=== PATIENT | female | born 1980 | race Caucasian/White ===

== ENCOUNTER 2024-02-24 12:38 | Emergency (ER) | payer BC ==
[2024-02-24] MEDS ORDERED: NA CHLORIDE 0.9% 2,000 ML ONE (13:16)
[2024-02-24] MEDS ORDERED: FAMOTIDINE 20 MG/2 ML VIAL IV ONE (13:16)
[2024-02-24 13:45] LABS: Absolute Basophils 0.1 K/uL (0-0.5); Absolute Eosinophils 0.2 K/uL (0-0.5); Absolute Lymphocytes (CBC) 0.8 K/uL (0.7-4.9); Absolute Monocytes 0.5 K/uL (0.1-1.3); Absolute Neutrophil 8.1 K/uL (1.8-8.0); Basophils % 0.5 % (0-1.3); Hematocrit 26.7 % (36.0-45.0); Hemoglobin 9.1 g/dL (12.0-15.0); Lymphocytes % 8.4 % (15.3-44.8); MCH 26.5 pg (27.0-35.0); MCHC 34.2 g/dL (32.0-36.0); MCV 77.5 fL (80-100); MPV 7.4 fL (7.6-11.3); Monocytes % 5.1 % (3.3-12.3); Platelets 465 thou/uL (152-406); RBC Red Blood Cell Count 3.44 M/uL (3.86-4.86); Red Cell Distribution Width 17.6 % (12.1-15.2)
[2024-02-24 13:52] LABS: PT Prothrombin Time 13.4 SECONDS (9.4-12.5); Protime INR 1.28
[2024-02-24 14:13] LABS: ALT/SGPT 23 U/L (13-56); AST/SGOT 39 U/L (15-37); Albumin 1.5 g/dL (3.4-5.0); Albumin/Globulin Ratio 0.3 (1.1-1.8); Alkaline Phosphatase 76 U/L (45-117); Anion Gap 15.7 mEq/L (5.0-15.0); BUN Blood Urea Nitrogen 83 mg/dL (7-18); Bicarbonate 21 mEq/L (21-32); Bilirubin Total 0.3 mg/dL (0.2-1.0); Globulin 4.9 g/dL (2.3-3.5); Glomerular Filtration Rate 10 ml/min (=/>90); Glucose Level 141 mg/dL (74-106); Lipase 60 U/L (13-75); Magnesium 2.8 mg/dL (1.6-2.4); NT PRO-BNP 2382 pg/mL (<125); Potassium 2.7 mEq/L (3.5-5.1); Protein, Total 6.4 g/dL (6.4-8.2); Sodium Level 134 mEq/L (136-145)
[2024-02-24 14:14] LABS: Bilirubin Direct < 0.2 mg/dL (0-0.2); Bilirubin Indirect, Calculated 0.1 mg/dL (0.2-0.8)
--- NOTE | 2024-02-24 14:47 | RAD REPORT ---
EXAMINATION: ONE VIEW CHEST XR CLINICAL INDICATION: Female, 43 years old.,COUGH TECHNIQUE: Frontal chest projection is submitted. Examination is limited by patient positioning and t echnique. COMPARISON: No prior exam. FINDINGS: Central interstitial prominence and central patchy opacities. Right Port-A-Cath in place with cathete r tip at the level of the distal SVC. No pneumothorax or sizable effusion. The heart is normal in size. Mediastinal contours are unremarkable. IMPRESSION: Findings suggestive of pulmonary edema versus multifocal pneumonia.
--- NOTE | 2024-02-24 15:53 | EDPHYS ---
Physician Documentation [facility] Name: Lynsey Jose Age: 43 yrs Sex: Female : 1980 Arrival Date: 02/24/2024 Time: 12:38 Bed 16 Private MD: ED Physician Arash Adler HPI: 02/23 15:42 This 43 yrs old Female presents to ER via EMS with complaints of Altered constance Mental Status. Historical: - Allergies: 13:05 PENICILLINS; bp 13:05 Sulfa (Sulfonamide Antibiotics); bp - PMHx: 13:05 UTERINE CANCER; bp - PSHx: 13:05 Total abdominal hysterectomy; bp - Immunization history:: Adult Immunizations up to date. - Infectious Disease History:: Denies. - Social history:: Smoking status: Patient denies any tobacco usage or history of. ROS: 15:46 Constitutional: Negative for fever, chills, and weight loss, Eyes: Negative for injury, constance pain, redness, and discharge, ENT: Negative for injury, pain, and discharge, Neck: Negative for injury, pain, and swelling, Cardiovascular: Negative for chest pain, palpitations, and edema, Respiratory: Negative for shortness of breath, cough, wheezing, and pleuritic chest pain, Abdomen/GI: Negative for abdominal pain, nausea, vomiting, diarrhea, and constipation, Back: Negative for injury and pain, : Negative for injury, bleeding, discharge, and swelling, MS/Extremity: Negative for injury and deformity, Skin: Negative for injury, rash, and discoloration, Psych: Negative for depression, anxiety, suicide ideation, homicidal ideation, and hallucinations, Allergy/Immunology: Negative for hives, rash, and allergies, Endocrine: Negative for neck swelling, polydipsia, polyuria, polyphagia, and marked weight changes, Hematologic/Lymphatic: Negative for swollen nodes, abnormal bleeding, and unusual bruising, 15:46 Neuro: Positive for altered mental status, dizziness, near syncope, weakness, Exam: 15:46 Head/Face: Normocephalic, atraumatic. Eyes: Pupils equal round and reactive to light, constance extra-ocular motions intact. Lids and lashes normal. Conjunctiva and sclera are non-icteric and not injected. Cornea within normal limits. Periorbital areas with no swelling, redness, or edema. ENT: Nares patent. No nasal discharge, no septal abnormalities noted. Tympanic membranes are normal and external auditory canals are clear. Oropharynx with no redness, swelling, or masses, exudates, or evidence of obstruction, uvula midline. Mucous membranes moist. Neck: Trachea midline, no thyromegaly or masses palpated, and no cervical lymphadenopathy. Supple, full range of motion without nuchal rigidity, or vertebral point tenderness. No Meningismus. Chest/axilla: Normal chest wall appearance and motion. Nontender with no deformity. No lesions are appreciated. Abdomen/GI: Soft, non-tender, with normal bowel sounds. No distension or tympany. No guarding or rebound. No evidence of tenderness throughout. Skin: Warm, dry with normal turgor. Normal color with no rashes, no lesions, and no evidence of cellulitis. MS/ Extremity: Pulses equal, no cyanosis. Neurovascular intact. Full, normal range of motion., bilateral aka Neuro: Awake and alert, GCS 15, oriented to person, place, time, and situation. Cranial nerves II-XII grossly intact. Motor strength 5/5 in all extremities. Sensory grossly intact. Cerebellar exam normal. Normal gait. 15:46 Constitutional: The patient appears frail, obese, obviously ill, 15:46 ECG was reviewed by the Attending Physician. 15:46 Musculoskeletal/extremity: DVT Exam: No signs of deep vein thrombosis. no pain, no swelling, no tenderness, negative Homans' sign noted on exam, no appreciated bluish discoloration, no erythema, no increased warmth, 15:46 Neuro: Orientation: is normal, appropriate for stated age, no acute changes, Mentation: slow to respond, Cranial nerves: grossly normal, is grossly normal based on the patient's age, no acute changes, Cerebellar function: unable to test, Motor: moves all fours, Gait: not tested. seizure activity, is not displayed by the patient, Vital Signs: 13:04 BP 84 / 44; bp 13:05 BP 89 / 56; Pulse 96; Resp 15; Temp 97.5; Pulse Ox 97% ; Weight 112.04 kg; bp 13:56 BP 83 / 55; Pulse 92; Resp 16; Pulse Ox 97% ; bp 15:23 BP 83 / 42; Pulse 85; Resp 10; Pulse Ox 92% ; bp 16:00 BP 117 / 86; Pulse 89; Resp 12; Pulse Ox 96% on 2 lpm NC; bp 17:00 BP 123 / 67; Pulse 94; Resp 13; Pulse Ox 93% ; bp 18:00 BP 116 / 62; Pulse 96; Resp 12; Pulse Ox 95% ; bp NIH Stroke Scale Scores: 15:46 NIHSS Score: 0 constance Tucker Coma Score: 15:46 Eye Response: spontaneous(4). Motor Response: obeys commands(6). Verbal Response: constance oriented(5). Total: 15. MDM: 12:44 Medical Screening Exam initiated constance 15:49 Differential Diagnosis: CVA, electrolyte abnormality, hypoglycemia, intracranial bleed, constance meningitis, overdose, pneumonia, sepsis, TIA, UTI, volume depletion. Data reviewed: vital signs, nurses notes, EMS record, lab test result(s), EKG, radiologic studies, CT scan, plain films. Consideration of Admission/Observation Escalation of care including admission/observation considered. I considered the following discharge prescriptions or medication management in the emergency department Medications were administered in the Emergency Department. See MAR. Independent interpretation of the following test(s) in the Emergency Department EKG: See my EKG interpretation above. Test considered but Not performed: Ultrasound no abd usg. Historians other than the Patient: Spouse/Significant Other: well informed. Care significantly affected by the following chronic conditions: Cancer. Counseling: I had a detailed discussion with the patient and/or guardian regarding the historical points, exam findings, and any diagnostic results supporting the discharge/admit diagnosis, lab results, the need to transfer to another facility, for higher level of care, [facility] does not immediately have the required specialist. 02/23 12:45 Order name: Basic Metabolic Panel; Complete Time: 18:49 [facility] 02/23 12:45 Order name: CBC with Diff; Complete Time: 15:23 [facility] 02/23 12:45 Order name: LFT's; Complete Time: 18:49 [facility] 02/23 12:45 Order name: Magnesium; Complete Time: 18:49 [facility] 02/23 12:45 Order name: NT PRO-BNP; Complete Time: 18:49 [facility] 02/23 12:45 Order name: PT-INR; Complete Time: 15:23 [facility] 02/23 12:45 Order name: Troponin HS; Complete Time: 18:49 [facility] 02/23 12:45 Order name: Lipase; Complete Time: 18:49 [facility] 02/23 12:45 Order name: Urinalysis w/ reflexes; Complete Time: 18:49 [facility] 02/23 12:45 Order name: Type And Screen; Complete Time: 15:23 [facility] 02/23 15:25 Order name: Blood Culture Adult (2) [facility] 02/23 15:25 Order name: Lactate w/ 2H reflex if indic.; Complete Time: 16:34 [facility] 02/23 15:46 Order name: Flu; Complete Time: 18:49 [facility] 02/23 15:46 Order name: SARS RAPID; Complete Time: 18:49 [facility] 02/23 17:39 Order name: Urine Culture [facility] 02/23 18:13 Order name: Phosphorus; Complete Time: 18:49 [facility] 02/23 12:45 Order name: XRAY Chest (1 view); Complete Time: 15:23 [facility] 02/23 15:44 Order name: Chest Abd Pelvis Wo Con; Complete Time: 17:32 [facility] 02/23 15:45 Order name: Head C Spine Mpr Wo Con; Complete Time: 16:34 [facility] 02/23 12:45 Order name: Cardiac monitoring; Complete Time: 13:10 [facility] 02/23 12:45 Order name: EKG - Nurse/Tech; Complete Time: 14:16 [facility] 02/23 12:45 Order name: IV Saline Lock; Complete Time: 13:10 [facility] 02/23 12:45 Order name: Labs collected and sent; Complete Time: 13:31 [facility] 02/23 12:45 Order name: O2 Per Protocol; Complete Time: 13:10 [facility] 02/23 12:45 Order name: O2 Sat Monitoring; Complete Time: 13:10 [facility] 02/23 15:25 Order name: IV Saline Lock - Large Bore; Complete Time: 17:22 [facility] 02/23 15:42 Order name: Stern; Complete Time: 17:22 [facility] 02/23 15:46 Order name: Misc. Order: access port; Complete Time: 16:49 [facility] EC:46 Rate is 91 beats/min. Rhythm is regular. QRS Glendo is Normal. ME interval is normal. QRS constance interval is normal. QT interval is normal. No Q waves. T waves are Normal. No ST changes noted. Clinical impression: NSR w/ Non-specific ST/T Changes and No evidence of ischemia. Interpreted by me. Reviewed by me. Administered Medications: 13:30 Drug: NS 0.9% IV (30 ml/kg) 30 ml/kg IV at bolus once; Sepsis Protocol; to be given as bp a bolus over 90 minutes Route: IV; Rate: bolus; Site: right hand; 18:54 Follow up: IV Status: Completed infusion bp 13:30 Drug: Famotidine IVP 20 mg IVP once; dilute with 10 mL 0.9% NaCl; give over 2 minutes bp Route: IVP; Site: right hand; 18:54 Follow up: Response: No adverse reaction bp 16:00 Drug: Meropenem IV 1 grams IV at per protocol once; (mix in NS 100 mL) Route: IV; Rate: bp per protocol; Site: right hand; 18:54 Follow up: IV Status: Completed infusion bp 16:00 Drug: Albumin IVPB 25 grams 100 ml IVPB once; (Note: Albumin 25% concentration) Volume: bp 100 ml; Route: IVPB; Site: right hand; 18:54 Follow up: IV Status: Completed infusion bp 16:00 Drug: Solu-CORTEF IVP 100 mg IVP once Route: IVP; Site: right hand; bp 18:53 Follow up: Response: No adverse reaction bp 16:30 Drug: Norepinephrine IV 0.1 mcg/kg/min IV at calculated rate See Administration bp Instructions; (Standard concentration 4 mg / 250 mL D5W); Recommended max rate 3 mcg/kg/min; Titrate 0.05 mcg/kg/min as often as every 5 minutes to achieve goal (see titration policy); Goal parameter MAP greater than 65 mmHg. Route: IV; Rate: calculated rate; Site: Port-a-cath; 18:53 Follow up: IV Status: Infusion continued upon transfer bp 16:30 Drug: Potassium Chloride IV 20 mEq IV at per protocol once; administer over 1 hours bp Route: IV; Rate: per protocol; Site: Port-a-cath; 18:53 Follow up: IV Status: Completed infusion bp 16:30 Drug: Potassium Chloride IV 20 mEq IV at per protocol once; administer over 1 hours bp Route: IV; Rate: per protocol; Site: Port-a-cath; 18:53 Follow up: IV Status: Completed infusion bp 18:30 Drug: NS 0.9% with KCl IV 20 mEq/L 1000 ml IV at 125 ml/hr continuous Route: IV; Rate: bp 125 ml/hr; Site: Port-a-cath; 18:53 Follow up: IV Status: Infusion continued upon transfer bp 18:54 Not Given (UNAVAILABLEe): [id number] mg 100 ml IVPB once over 60 mins bp Disposition Summary: 02/24/24 15:52 Transfer Ordered Notes: Transfer Location: [facility] System constance Reason: Higher level of care constance Condition: Serious constance Problem: new constance Symptoms: have improved constance Accepting Physician: to JOSE F OCONNOR(02/24/24 18:56) bp Diagnosis - Severe sepsis with septic shock constance - Acute kidney failure, unspecified constance - Hypotension, unspecified constance - Hypokalemia constance - Anemia in other chronic diseases classified elsewhere constance - Anemia, unspecified constance - Altered mental status, unspecified constance - Encounter for screening for malignant neoplasm of other genitourinary organs constance Forms: - Medication Reconciliation Form constance - SBAR form constance NIH Stroke Scale - NIH Stroke Score Date: 02/24/2024 Time: 15:46 Total Score = 0 10. Dysarthria (speech clarity - read or repeat words) - 0(Normal) 11. Extinction and Inattention (visual/tactile/auditory/spatial/personal) - 0(No abnormality) 1a. Level of Consciousness (LOC) - 0(Alert) 1b. Level of Consciousness (LOC) (Month \T\ Age) - 0(Both) 1c. LOC Commands (Open \T\ Closes Eyes/Nursing Professor) - 0(Both) 2. Best Gaze (Lateral Gaze Paresis) - 0(Normal) 3. Visual Field Loss - 0(No visual loss) 4. Facial Palsy - 0(Normal) 5a. Left Arm: Motor (10-second hold) - 0(No drift) 5b. Right Arm: Motor (10-second hold) - 0(No drift) 6a. Left Leg: Motor (5-second hold - always test supine) - 0(No drift) 6b. Right Leg: Motor (5-second hold - always test supine) - 0(No drift) 7. Limb Ataxia (finger/nose \T\ heel/kaplan - test with eyes open) - 0(Absent) 8. Sensory Loss (pinprick arms/legs/face) - 0(Normal) 9. Best Language: Aphasia (description/naming/reading) - 0(No aphasia) Initials: constance Signatures: Dispatcher [employer] EDMS Arash Adler MD MD cha Peltier, Brian, RN RN bp Corrections: (The following items were deleted from the chart) 12:46 12:46 BASIC METABOLIC PANEL+C.LAB.BRZ ordered. EDMS EDMS 12:46 12:46 CBC+H.LAB.BRZ ordered. EDMS EDMS 12:46 12:46 HEPATIC FUNCTION+C.LAB.BRZ ordered. EDMS EDMS 12:46 12:46 MAGNESIUM+C.LAB.BRZ ordered. EDMS EDMS 12:46 12:46 PROBNP+C.LAB.BRZ ordered. EDMS EDMS 12:46 12:46 PROTIME (+INR)+COAG.LAB.BRZ ordered. EDMS EDMS 12:46 12:46 Troponin High Sensitivity+C.LAB.BRZ ordered. EDMS EDMS 12:46 12:46 LIPASE+C.LAB.BRZ ordered. EDMS EDMS 12:46 12:46 Urinalysis+U.LAB.BRZ ordered. EDMS EDMS 12:46 12:46 TYPE AND SCREEN+BB.LAB.BRZ ordered. EDMS EDMS 12:46 12:46 Chest Single View+RAD.RAD.BRZ ordered. EDMS EDMS 15:25 15:25 BLOOD CULTURE*+BA.LAB.BRZ ordered. EDMS EDMS 15:25 15:25 LACTATE+C.LAB.BRZ ordered. EDMS EDMS 15:44 15:29 Head C Spine Cap Wo Con+CT.RAD.BRZ ordered. EDMS EDMS 15:46 15:46 Influenza Screen (A \T\ B)+BA.LAB.BRZ ordered. EDMS EDMS 15:46 15:46 SARS-COV-2 Antigen Rapid+I.LAB.BRZ ordered. EDMS EDMS 17:33 15:52 to [facility] constance constance 18:13 15:45 PHOSPHORUS+C.LAB.BRZ ordered. EDMS EDMS 18:56 17:33 to [facility] constance bp
--- NOTE | 2024-02-24 15:53 | ER ---
Nurse's Notes [facility] Name: Lynsey Jose Age: 43 yrs Sex: Female : 1980 Arrival Date: 02/24/2024 Time: 12:38 Bed 16 Private MD: Diagnosis: Severe sepsis with septic shock;Acute kidney failure, unspecified;Hypotension, unspecified;Hypokalemia;Anemia in other chronic diseases classified elsewhere;Anemia, unspecified;Altered mental status, unspecified;Encounter for screening for malignant neoplasm of other genitourinary organs Presentation: 02/23 13:04 Chief complaint: EMS states: [facility]. Coronavirus screen: At this time, the bp client does not indicate any symptoms associated with coronavirus-19. Ebola Screen: No symptoms or risks identified at this time. Initial Sepsis Screen: Does the patient meet any 2 criteria? Systolic BP < 90 mmHg. Does the patient have a suspected source of infection? No. Patient's initial sepsis screen is negative. Risk Assessment: Do you want to hurt yourself or someone else? Patient reports no desire to harm self or others. Onset of symptoms is unknown. Care prior to arrival: Medication(s) given: Normal saline infusion, 1000 mL, IV initiated. 22 GA, in the right hand, Glucose check: 154. 13:04 Method Of Arrival: EMS bp 13:04 Acuity: OSEAS 3 bp Triage Assessment: 13:05 General: Appears in no apparent distress. obese, Behavior is cooperative, drowsy. Pain: bp Complains of pain in abdomen. EENT: No deficits noted. Neuro: Level of Consciousness is lethargic, Oriented to Appropriate for age. Cardiovascular: No deficits noted. Respiratory: No deficits noted. GI: Abdomen is obese. : No signs and/or symptoms were reported regarding the genitourinary system. Derm: No deficits noted. Musculoskeletal: No deficits noted. Historical: - Allergies: 13:05 PENICILLINS; bp 13:05 Sulfa (Sulfonamide Antibiotics); bp - PMHx: 13:05 UTERINE CANCER; bp - PSHx: 13:05 Total abdominal hysterectomy; bp - Immunization history:: Adult Immunizations up to date. - Infectious Disease History:: Denies. - Social history:: Smoking status: Patient denies any tobacco usage or history of. Screenin:09 [facility] ED Fall Risk Assessment (Adult) History of falling in the last 3 months, bp including since admission No falls in past 3 months (0 pts) Confusion or Disorientation No (0 pts) Intoxicated or Sedated No (0 pts) Impaired Gait No (0 pts) Mobility Assist Device Used No (0 pt) Altered Elimination No (0 pt) Score/Fall Risk Level 0 - 2 = Low Risk Oriented to surroundings. Abuse screen: Denies threats or abuse. Denies injuries from another. Nutritional screening: No deficits noted. Tuberculosis screening: No symptoms or risk factors identified. Assessment: 13:09 General: SEE TRIAGE NOTE. bp 13:56 Reassessment: No changes from previously documented assessment. Patient is alert, bp oriented x 3, equal unlabored respirations, skin warm/dry/pink. 15:23 Reassessment: No changes from previously documented assessment. Patient is alert, bp oriented x 3, equal unlabored respirations, skin warm/dry/pink. 18:11 Reassessment: REPORT TO JOSHUA SAUCEDO AT [facility] ICU 309. bp 18:55 Reassessment: PT ROEL WITH EMS. bp Vital Signs: 13:04 BP 84 / 44; bp 13:05 BP 89 / 56; Pulse 96; Resp 15; Temp 97.5; Pulse Ox 97% ; Weight 112.04 kg; bp 13:56 BP 83 / 55; Pulse 92; Resp 16; Pulse Ox 97% ; bp 15:23 BP 83 / 42; Pulse 85; Resp 10; Pulse Ox 92% ; bp 16:00 BP 117 / 86; Pulse 89; Resp 12; Pulse Ox 96% on 2 lpm NC; bp 17:00 BP 123 / 67; Pulse 94; Resp 13; Pulse Ox 93% ; bp 18:00 BP 116 / 62; Pulse 96; Resp 12; Pulse Ox 95% ; bp [place] Coma Score: 15:46 Eye Response: spontaneous(4). Motor Response: obeys commands(6). Verbal Response: constance oriented(5). Total: 15. NIH Stroke Scale Scores: 15:46 NIHSS Score: 0 constance ED Course: 12:43 Patient arrived in ED. eb 12:44 Arash Adler MD is Attending Physician. constance 13:04 Bulmaro Wang, RN is Primary Nurse. bp 13:04 Warm blanket given. em1 13:05 Triage completed. bp 13:05 Arm band placed on. bp 13:09 Patient has correct armband on for positive identification. bp 13:09 Maintain EMS IV. Dressing intact. Good blood return noted. Site clean \T\ dry. Gauge \T\ bp site: 22 R HAND. Flushed with 10 mL NS. 13:24 XRAY Chest (1 view) In Process Unspecified. EDMS 14:16 EKG done, by ED staff, reviewed by Arash Adler MD. am7 15:30 Accessed Port-a-Cath. using accessed w/ #19 Lee needle, Clean \T\ dry. Dressing intact. bp No blood return. Flushes easily. 15:30 Setrn cath inserted, using sterile technique, 16 Fr., by wa, balloon inflated, to bp gravity drainage, urine specimen collected. returned eleanor urine. Patient tolerated well. 16:00 transfer initiated with [facility]. eb 16:20 Chest Abd Pelvis Wo Con In Process Unspecified. EDMS 16:20 Head C Spine Mpr Wo Con In Process Unspecified. EDMS 16:41 Irene with [facility] to arrange for an ICU bed at [facility]; when arrangements are finalized she will call us back with MOT information. 18:55 No provider procedures requiring assistance completed. Patient transferred, IV remains bp in place. Administered Medications: 13:30 Drug: NS 0.9% IV (30 ml/kg) 30 ml/kg IV at bolus once; Sepsis Protocol; to be given as bp a bolus over 90 minutes Route: IV; Rate: bolus; Site: right hand; 18:54 Follow up: IV Status: Completed infusion bp 13:30 Drug: Famotidine IVP 20 mg IVP once; dilute with 10 mL 0.9% NaCl; give over 2 minutes bp Route: IVP; Site: right hand; 18:54 Follow up: Response: No adverse reaction bp 16:00 Drug: Meropenem IV 1 grams IV at per protocol once; (mix in NS 100 mL) Route: IV; Rate: bp per protocol; Site: right hand; 18:54 Follow up: IV Status: Completed infusion bp 16:00 Drug: Albumin IVPB 25 grams 100 ml IVPB once; (Note: Albumin 25% concentration) Volume: bp 100 ml; Route: IVPB; Site: right hand; 18:54 Follow up: IV Status: Completed infusion bp 16:00 Drug: Solu-CORTEF IVP 100 mg IVP once Route: IVP; Site: right hand; bp 18:53 Follow up: Response: No adverse reaction bp 16:30 Drug: Norepinephrine IV 0.1 mcg/kg/min IV at calculated rate See Administration bp Instructions; (Standard concentration 4 mg / 250 mL D5W); Recommended max rate 3 mcg/kg/min; Titrate 0.05 mcg/kg/min as often as every 5 minutes to achieve goal (see titration policy); Goal parameter MAP greater than 65 mmHg. Route: IV; Rate: calculated rate; Site: Port-a-cath; 18:53 Follow up: IV Status: Infusion continued upon transfer bp 16:30 Drug: Potassium Chloride IV 20 mEq IV at per protocol once; administer over 1 hours bp Route: IV; Rate: per protocol; Site: Port-a-cath; 18:53 Follow up: IV Status: Completed infusion bp 16:30 Drug: Potassium Chloride IV 20 mEq IV at per protocol once; administer over 1 hours bp Route: IV; Rate: per protocol; Site: [facility]; 18:53 Follow up: IV Status: Completed infusion bp 18:30 Drug: NS 0.9% with KCl IV 20 mEq/L 1000 ml IV at 125 ml/hr continuous Route: IV; Rate: bp 125 ml/hr; Site: Port-a-cath; 18:53 Follow up: IV Status: Infusion continued upon transfer bp 18:54 Not Given (UNAVAILABLEe): [id number] mg 100 ml IVPB once over 60 mins bp Medication: 13:09 VIS not applicable for this client. bp Outcome: 15:52 ER care complete, transfer ordered by MD. nolasco 18:55 Transferred by ground EMS bp 18:55 Condition: stable 18:55 Instructed on the need for transfer, 18:56 Patient left the ED. bp NIH Stroke Scale - NIH Stroke Score Date: 02/24/2024 Time: 15:46 Total Score = 0 10. Dysarthria (speech clarity - read or repeat words) - 0(Normal) 11. Extinction and Inattention (visual/tactile/auditory/spatial/personal) - 0(No abnormality) 1a. Level of Consciousness (LOC) - 0(Alert) 1b. Level of Consciousness (LOC) (Month \T\ Age) - 0(Both) 1c. LOC Commands (Open \T\ Closes Eyes/Parking Cashier) - 0(Both) 2. Best Gaze (Lateral Gaze Paresis) - 0(Normal) 3. Visual Field Loss - 0(No visual loss) 4. Facial Palsy - 0(Normal) 5a. Left Arm: Motor (10-second hold) - 0(No drift) 5b. Right Arm: Motor (10-second hold) - 0(No drift) 6a. Left Leg: Motor (5-second hold - always test supine) - 0(No drift) 6b. Right Leg: Motor (5-second hold - always test supine) - 0(No drift) 7. Limb Ataxia (finger/nose \T\ heel/kaplan - test with eyes open) - 0(Absent) 8. Sensory Loss (pinprick arms/legs/face) - 0(Normal) 9. Best Language: Aphasia (description/naming/reading) - 0(No aphasia) Initials: constance Signatures: Dispatcher [employer] EDMS Arash Adler MD MD cha Martinez, Eric em1 Bulmaro Wang, SHERYL RN Leslee Albrecht Abigail am7 Corrections: (The following items were deleted from the chart) 13:09 13:04 Care prior to arrival: Medication(s) given: Normal saline infusion, 1000 bp mL, IV initiated. 20 GA, in the left antecubital area, Glucose check: 154 bp 13:09 13:05 BP 89 / 56; Pulse 96bpm; Resp 15bpm; Pulse Ox 97%; bp bp 17:26 16:49 Accessed bp bp 18:55 13:05 BP 89 / 56; Pulse 96bpm; Resp 15bpm; Pulse Ox 97%; 112.04 kg; bp bp
[2024-02-24] MEDS ORDERED: HYDROCORTISONE SUC 100 MG INJ ONE (16:11)
[2024-02-24] MEDS ORDERED: Meropenem 1000 MG/VIAL IV ONE (16:12)
[2024-02-24] MEDS ORDERED: KCL 20 MEQ/100 mL IVPB 200 ML IV ONE (16:12)
[2024-02-24] MEDS ORDERED: NA CHLORIDE 0.9% 100 ML ONE (16:13)
[2024-02-24] MEDS ORDERED: NOREPINEPHRINE BITARTRATE/D5W 4 MG/250 ML KIT IV ONE (16:13)
[2024-02-24] MEDS ORDERED: ALBUMIN HUMAN 25% 100 ML IV ONE (16:13)
--- NOTE | 2024-02-24 16:29 | RAD REPORT ---
EXAM: CT brain without contrast HISTORY: CONFUSED COMPARISON: None TECHNIQUE: Multiple contiguous axial images were obtained and a CT of the brain without contrast. Sag ittal and coronal reformats were performed. FINDINGS: No evidence of hydrocephalus, intracranial hemorrhage, or extra-axial fluid collection. The brain is normal in morphology. The calvarium is intact. The visualized paranasal sinuses and mastoid air cells are essentially clear . IMPRESSION: No evidence of acute intracranial abnormality. EXAM: CT of the cervical spine without contrast HISTORY: CONFUSED COMPARISON: None TECHNIQUE: Multiple contiguous axial images were obtained in a CT of the cervical spine without contr ast. Sagittal and coronal reformats were performed. FINDINGS: The vertebral bodies demonstrate normal height and alignment. No evidence of acute fracture or subluxation.. Mild multilevel degenerative changes are present. No prevertebral soft tissue swelling is seen. The posterior facets are well aligned. Normal alignment of the skull base with the cervical spine is seen. The lung apices are unremarkable. IMPRESSION: No evidence of acute osseous abnormality of the cervical spine.
[2024-02-24] MEDS ORDERED: FENTANYL CITR 100 MCG/2 ML ONE ×2 (16:54→18:40)
--- NOTE | 2024-02-24 16:57 | RAD REPORT ---
EXAM: CT CHEST, ABDOMEN AND PELVIS WITHOUT CONTRAST CLINICAL INDICATION: Female, 43 years old. [facility] CONFUSED Bed Name: 16 TECHNIQUE: CT chest, abdomen and pelvis was performed, without IV contrast, as per department protoco l. Axial, sagittal and coronal reconstructions were obtained. One or more of the following dose reduction techniques were used: Automated exposure control, adjustment of the mA and/or kV according to the patient size, and/or iterative reconstruction. Unless otherwise specified, incidental findings do not require dedicated imaging follow-up. COMPARISON: No prior exam. The bladder FINDINGS: The lack of intravenous contrast limits the sensitivity of this exam for evaluation of solid visceral organs, vascular structures, and retroperitoneum. Chest: LOWER NECK/CHEST WALL: Visualized thyroid gland and soft tissues are normal. LUNGS AND AIRWAYS: Dependent bilateral basilar airspace opacities with interstitial thickening. No no dules. PLEURA: No pleural effusion. No pneumothorax. Hemidiaphragms are normally positioned. MEDIASTINUM AND LYMPH NODES: No mediastinal mass or fluid collection. Normal size mediastinal, hilar, and axillary lymph nodes. THORACIC AORTA: Normal caliber and configuration. PULMONARY ARTERIES: Normal caliber. HEART: Unremarkable. Abdomen/Pelvis LIVER: Normal in size and contour. No focal lesion. GALLBLADDER/BILE DUCTS: Status post cholecystectomy. IVC filter in place.. PANCREAS: No mass, ductal dilation, or jocelyn-pancreatic fluid. SPLEEN: Normal size. No focal lesion. ADRENALS: Normal; no mass. KIDNEYS AND URETERS: Normal size and contour. No hydronephrosis. GASTROINTESTINAL TRACT: Stomach is non-dilated. Small bowel has normal course and caliber. No colonic wall thickening or pericolonic inflammatory changes. PERITONEUM: No free fluid. LYMPH NODES: Upper preaortic and precaval lymph node enlargement, with largest node measuring 1.6 cm in short axis. ABDOMINAL AORTA AND OTHER VESSELS: Normal caliber aorta and IVC. URINARY BLADDER: Normal contour. REPRODUCTIVE ORGANS: Masslike enlargement of the uterus, likely invasion of the rectum, with no separ able plane between the 2 organs. There may be involvement of the right adnexal structures as well, which show nodular thickening. Overall mass dimensions measure 12.1 x 10.9 cm in greatest axial plane s, and 14.8 cm in greatest craniocaudal dimension. MUSCULOSKELETAL: No acute or suspicious osseous abnormality. ADDITIONAL FINDINGS: Left anterior abdominal wall enhancing soft tissue deposits measuring 7.0 x 6.1 cm IMPRESSION: Bilateral dependent basilar airspace patchy opacities with interstitial thickening, concerning for pu lmonary edema or multifocal pneumonia. Large mass involving the uterus, rectum, and probably the anal canal and right adnexal region measuri ng up to 14.8 cm, concerning for primary malignancy. Metastatic soft tissue deposit along the left anterior abdominal wall. Periaortic and precaval lymphadenopathy concerning for miranda metastases,
[2024-02-24] MEDS ORDERED: NS KCL 20MEQ 1,000 ML IV ONE (17:04)
[2024-02-24 17:34] LABS: Specific Gravity 1.021 (1.005-1.030); Sqamous Epithelial <5 /HPF (None Seen); Urine Bacteria <20 /HPF (<20); Urine Bilirubin NEGATIVE (Negative); Urine Blood Negative (Negative); Urine Clarity Turbid (Clear); Urine Color Yellow (Yellow); Urine Crystals Unidentified Few /HPF (None Seen); Urine Culture Reflex Order REFLEXED; Urine Glucose NEGATIVE (Negative); Urine Ketones NEGATIVE (Negative); Urine Microscopic Reflex YN ORDER UMIC; Urine Nitrite NEGATIVE (Negative); Urine Protein 1+ (Negative); Urine RBC <5 /HPF (None Seen); Urine Urobilinogen Normal (Normal); Urine pH 5.5 (5.0-7.0)
[2024-02-24 18:02] LABS: SARS-CoV-2 Antigen CONTROL BLUE LINE VIS/BG OK; SARS-CoV-2 Antigen Rapid Res Negative (Negative)
[2024-02-24 18:32] LABS: Phosphorus 5.5 mg/dL (2.5-4.9)
[2024-02-24 19:31] VITALS: TEMP 97.5
[2024-02-24 19:37] VITALS: BP 116/62; O2SAT 95
--- NOTE | 2024-02-28 13:06 | EKG ---
Test Date: 2024-02-24 Test Time: 14:06:48 Dental Sales Representative: AM MEASUREMENT RESULTS: Intervals: Rate: 91 [place]: 158 QRSD: 76 QT: 330 QTc: 405 [place]: P: 45 [place]: 158 QRS: 32 T: -6 INTERPRETIVE STATEMENTS: Normal sinus rhythm Nonspecific T wave abnormality Abnormal ECG No previous ECG available for comparison Electronically Signed On 02-28-24 13:01:22 ROOM SERVICE SERVER by Matt Griffiths
== END 2024-02-24 18:56 | disposition short-term general hospital (02) ==
LOC: ER 12:38
DX: A41.9 Sepsis, unspecified organism (principal); R65.21 Severe sepsis with septic shock; N17.9 Acute kidney failure, unspecified; I95.9 Hypotension, unspecified; E87.6 Hypokalemia; R41.82 Altered mental status, unspecified; D63.8 Anemia in other chronic diseases classified elsewhere; Z88.0 Allergy status to penicillin; Z88.2 Allergy status to sulfonamides; Z12.79 Encounter for screening for malignant neoplasm of other genitourinary organs; Z11.52 Encounter for screening for COVID-19
CPT/HCPCS: 93005; 87040 ×2; 87088; 85025; 81001; 87086; 80048; 36415; 86900; 83735; 86850; 84100; 85610; 86901; 80076; 83605; 84484; 83690; 83880; 87804 ×2; 70450; 71250; 72125; 74176; 71045; 51702; 99285; 87811; J3480 ×2; J3010 ×2; J2185; J1720; P9047; J7030